=== PATIENT | male | born 1950 | race Caucasian/White ===

== ENCOUNTER → 2016-05-25 | Outpatient (CLI) | payer BC ==
--- NOTE | 2016-05-25 17:31 | RAD ---
CT scan of the chest without contrast 05/25/2016 Clinical history: Shortness of breath and hoarseness for 3 weeks. Significant smoking history. Abnormal density seen in the left lung on recent chest radiograph. Technique: Unenhanced, contiguous, 3 mm axial sections were obtained through the chest and upper abdomen. One or more of the following individualized dose reduction techniques were utilized for this study: 1. Automated exposure control. 2. Adjustment of the mA and/or kV according to patient size. 3. Use of iterative reconstruction technique. Findings: Comparison is made to patient's PA and lateral chest radiographs dated 03/27/2016. Additional comparison is made to the patient's CTA of the chest dated 09/13/2008. 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 Atherosclerotic calcification of the thoracic aorta and its branches is noted. The thoracic aorta is tortuous but tapers normally. The heart is normal in size. A mass is seen involving the left upper lobe which extends to involve the superior left hilum/mediastinum. This mass measures 5.4 x 5.2 x 4.9 cm in craniocaudal, transverse and AP dimensions. It is consistent most likely with bronchogenic carcinoma. Enlarged mediastinal lymph nodes are seen which measure 1 to 1.6 cm in size. Patchy left upper lobe atelectasis/infiltrate and/or scarring is seen. No pleural effusion or pneumothorax is seen. The right lung is clear. Images through the upper abdomen demonstrate calcified gallstones within the gallbladder. Atherosclerotic calcification of the abdominal aorta and its branches is seen. The adrenal glands are within normal limits. Degenerative changes are seen involving the thoracic spine. Very mild S-shaped curvature of the thoracolumbar spine is seen. Impression: 5.4 cm mass is seen within the left upper lobe/superior left hilum which extends to the mediastinum. This is consistent most likely with bronchogenic carcinoma.
== END | disposition home or self-care (01) ==
LOC: CT 13:13
PROVIDERS: ATTEND Family Medicine
DX: R91.8 Other nonspecific abnormal finding of lung field (principal); I70.0 Atherosclerosis of aorta; K80.20 Calculus of gallbladder without cholecystitis without obstruction; R49.0 Dysphonia
CPT/HCPCS: 71250